=== PATIENT | female | born 1990 | race Caucasian/White ===

== ENCOUNTER 2019-10-20 04:49 | Inpatient (IN) | payer BC, OTHER ==
[2019-10-19 13:55] LABS: Urine Appearance CLOUDY; Urine Blood NEGATIVE (NEG); Urine Color DK YELLOW; Urine Glucose NEGATIVE (NEG); Urine Protein NEGATIVE (NEG); Urine Specific Gravity 1.025 (1.005-1.030)
[2019-10-19 13:55] LABS: Absolute Lymphocytes (CBC) 2.3 K/uL (0.7-4.9); Basophils % 0.3 % (0-1.3); Hematocrit 40.3 % (36.0-45.0); Lymphocytes % 21.9 % (15.3-44.8); MPV 9.4 fL (7.6-11.3); RBC Red Blood Cell Count 4.94 M/uL (3.86-4.86)
[2019-10-19 13:58] LABS: Urine Microscopic Reflex ORDER UMIC
[2019-10-19 14:01] LABS: Urine Bilirubin 1+ (NEG)
[2019-10-19 14:01] LABS: Protime INR 0.97
[2019-10-19 14:03] LABS: Urine Bacteria 20-50 /HPF (<20); Urine RBC <5 /HPF (NONE SEEN)
[2019-10-19 14:04] LABS: Urine Culture Reflex Order NOT NEEDED; Urine Mucus MOD /HPF (NONE SEEN)
[~2019-10-20 04:49] MED LIST: CEFAZOLIN/SWI 2gm 2 GM/20 ML SYR IV SCH; METOCLOPRAMIDE 10 MG/2mL INJ IV ONE; NA CIT/CITRIC AC 30 ML ORAL UDC PO ONE
[2019-10-20] MEDS ORDERED: CEFAZOLIN/SWI 2gm 2 GM/20 ML SYR ONE (06:09)
[2019-10-20] MEDS ORDERED: Ringers Lactate 1,000 ML IV PRN (06:18)
[2019-10-20 06:33] VITALS: BMI 38.8
[2019-10-20] MEDS ORDERED: CARBOPROST TROME 250 MCG/ML IM ONE (06:58)
[2019-10-20] MEDS ORDERED: METHYLERGONOVINE 0.2MG/ML AMP IM ONE (06:58)
[2019-10-20] MEDS ORDERED: Ringers Lactate 1,000 ML IV SCH (07:00)
[2019-10-20] MEDS ORDERED: OXYTOCIN 10 UNIT/ML ML IV ONE (07:05)
[2019-10-20] MEDS ORDERED: MORPHINE SULFATE/PF 1 MG/ML (10 ML AMP) ONE (07:05)
[2019-10-20] MEDS ORDERED: ONDANSETRON 4 MG/2 ML VIAL ONE (07:06)
[2019-10-20] MEDS ORDERED: BUPIVACAINE 0.75% (PF) 2 ML SP ONE (07:07)
[2019-10-20] MEDS ORDERED: EPHEDRINE SULF 50 MG/ML VIAL ONE (07:39)
[2019-10-20] MEDS ORDERED: ONDANSETRON 4 MG (ODT) TAB PO PRN (08:32)
[2019-10-20] MEDS ORDERED: ACETAMINOPHEN 500 MG TAB PO PRN ×2 (08:32)
[2019-10-20] MEDS ORDERED: KETOROLAC 30 MG/ML INJ IM PRN (08:32)
[2019-10-20] MEDS ORDERED: BISACODYL 10 MG RECTAL SUPP PR PRN (08:32)
[2019-10-20] MEDS ORDERED: ONDANSETRON 4 MG/2 ML VIAL IV PRN (08:32)
[2019-10-20] MEDS ORDERED: Oxycodone HCl/Acetaminophen 1 TAB TAB PO PRN ×2 (08:32)
[2019-10-20] MEDS ORDERED: KETOROLAC 30 MG/ML INJ IV PRN (08:32)
[2019-10-20] MEDS ORDERED: DIPHENHYDRAMINE 25 MG TAB/CAP PO PRN (08:32)
[2019-10-20] MEDS ORDERED: OXYTOCIN/LR 20 UNIT/1,000 ML BAG IV SCH (09:00)
[2019-10-20] MEDS ORDERED: FAMOTIDINE 20 MG/2 ML VIAL IV SCH (09:00)
[2019-10-20] MEDS ORDERED: D5LR 1,000 ML with OXYTOCIN 20 UNIT IV SCH ×2 (09:00)
--- NOTE | 2019-10-20 09:33 | PREOPHP ---
Date of Admission: 10/20/2019 History Of Present Illness: 28-year-old, 3, para 1, at 39 weeks tomorrow for repe at section. Infection; blood loss; anesthetic complications; injury to bladder, bowel, uret er; postoperative complications; clots in legs; and pneumonia. Patient knows fully well this does no t constitute all the possible problems that could occur during or following surgery. Family History: Mother and paternal aunt with hypertension. Mother with a stroke. Allergies: PATIENT HAS NO ALLERGIES. Current Medications: She has been taking vitamins prior to admission. Social History: Does not smoke. Physical Examination: HEENT: Clear. Pupils are equal, round, and reactive to light and accommodation. Conjunctivae well perfused. No oral, lingual, or buccal lesions. Lungs: Clear. Heart: Patient says that she has a heart murmur, but I cannot detect anything major today. Breasts: Without masses on previous visits. Abdomen: Dramatically obese with significant panniculus overhanging her incision. Extremities: Clear. Pelvic: The baby is vertex, high and she is fingertip to 1.5 cm possibly dilated. Plan: We will proceed with repeat section tomorrow. Full discussion with patient and hien mart. SAEED/LORRAINE Voice ID: [id number]
[2019-10-20] MEDS ORDERED: KETOROLAC 30 MG/ML INJ ONE (09:43)
[2019-10-20] MEDS ORDERED: MEPERIDINE HCL 25 MG/0.5 ML IV PRN (10:25)
[2019-10-20] MEDS ORDERED: Rho(D) IG (HUMAN) 300 MCG SYR IM ONE (12:00)
[2019-10-20] MEDS: IBUPROFEN 600 MG TAB PO PRN (17:10)
[2019-10-20] MEDS ORDERED: CEFAZOLIN/SWI 1gm 1 GM/10 ML SYR IVP ONE (17:15)
[2019-10-20] MEDS ORDERED: CEFAZOLIN/SWI 1gm 1 GM/10 ML SYR ONE (17:16)
[2019-10-21] MEDS: IBUPROFEN 600 MG TAB PO PRN (00:30)
[2019-10-21] MEDS ORDERED: MAGNESIUM HYDROXIDE 8% 30 ML PO PRN (08:32)
[2019-10-21] MEDS ORDERED: Ringers Lactate 1,000 ML IV ONE (15:28)
[2019-10-22 05:57] VITALS: TEMP 98
[2019-10-22] MEDS ORDERED: Tdap (Diph,Pertuss(Acell),Tet Vac) 0.5 ML SYR IMVAC ONE (07:23)
[2019-10-22 07:31] VITALS: BP 116/66
[2019-10-22] MEDS: IBUPROFEN 600 MG TAB PO PRN (07:42)
--- NOTE | 2019-10-22 09:35 | DS ---
28-year-old 3, para 1, for repeat section. Patient was delivered of a 6-pound 11-ou nce female, Apgars 9 and 9 under spinal block anesthesia which was administered twice and effective t he second time, mild uterine hypotonus. 900 cc or less blood loss. Ancef used for prophylaxis pre a nd postop. Postoperatively, has remained afebrile, was ambulating and voiding. Lochia is normal. W ill be dismissed this morning, to report back to my office next week for staple removal. To report a ny temperature elevation of 100 degrees or greater, severe pain, heavy bleeding, or any other type of abnormalities. Dismissed with tramadol for analgesia. She knows this goes through the breast milk. Tdap will be administered before she is dismissed. The patient is Rh negative and immune to Rubell a. Has received her RhoGAM. Final Diagnoses: Term intrauterine . Repeat section. Spinal block anesthesia. R hoGAM administered. SAEED/LORRAINE Voice ID: [id number] Report ID: [id number]
--- NOTE | 2019-10-24 10:34 | OP ---
Surgeon: Caesar Plummer MD Manager Wellness: Manager Wellness surgeon, Dr. Wade. Anesthesiologist: Dr. Ballard. Indications: 28-year-old 3, para 2, 39 weeks gestation, for repeat section. Infect ion; blood loss; anesthetic complications; injury to bladder, bowel, ureter; postoperative complicati ons; clots in legs; pneumonia discussed. Patient knows fully well this does not constitute all the p ossible problems that could occur during or following surgery. Anesthesia: Spinal block anesthesia. Description Of Procedure: After second spinal block attempted, patient received good analgesia. Pre pping and draping was performed and then timeout. Pfannenstiel incision was created along the previo us incision site. The incision carried to the fascia. The fascia was incised and incision carried t ransversely bilaterally. Two [id number]-[id number] stitches were needed in the right rectus muscles for sm all bleeder at that point. Anterior and posterior fascial planes were developed with both blunt and sharp dissection. The underlying rectus muscle was , peritoneum entered. Low-transverse bl adder flap was developed. Low transverse uterine incision created, 6 pounds, 11-ounce female was del ivered, Apgars 9 and 9. Cord blood specimen was obtained. Placenta was removed manually. Uterus cl eared of clot and blood. Very mild hypertonus. 0.2 mg of Methergine. More for prophylaxis and anyt jesus else. 900 cc estimated blood loss during the procedure. Cervical os dilated with ring clamps a fter all membranes were removed. Uterus closed with a running locked stitch of 1 chromic followed by 3 [id number]-am-[id number] stitches in the right angle for complete hemostasis. Gutters clear of clot and bl ood. Uterus was replaced in the peritoneal cavity. A suture line checked, no further bleeding. Mus cles were reapproximated using 0 Vicryl 3 interrupted sutures. Fascia was closed using 1 PDS, runnin g from either angle to the midline. Subcutaneous tissue closed with 2-0 plain and staple was then ap plied. Patient had been given 2 g of Ancef. Tolerated all procedures well. Transferred back to her room in good condition. Final Diagnoses: Term intrauterine for repeat section, 39 weeks. Spinal block an esthesia. Very mild uterine hypertonus. NBC/MODL Voice ID: [id number] Report ID: [id number]
== END 2019-10-22 10:00 | disposition home or self-care (01) | DRG 788 ==
LOC: 2ND-WC 04:49
PROVIDERS: ADMIT Specialist; ATTEND Specialist
PROC: 10907ZC Drainage of Amniotic Fluid, Therapeutic from Products of Conception, Via Natural or Artificial Opening (ICD-10-PCS; 2019-10-20)
PROC: 3E0234Z Introduction of Serum, Toxoid and Vaccine into Muscle, Percutaneous Approach (ICD-10-PCS; 2019-10-20)
PROC: 10D00Z1 Extraction of Products of Conception, Low, Open Approach (ICD-10-PCS; principal; 2019-10-20 07:48)
DX: O34.211 Maternal care for low transverse scar from previous cesarean delivery (principal); O62.4 Hypertonic, incoordinate, and prolonged uterine contractions; Z3A.39 39 weeks gestation of pregnancy; Z37.0 Single live birth; Z67.21 Type B blood, Rh negative; Z23 Encounter for immunization
CPT/HCPCS: 36415; 81003; 81015; 85014; 85025; 85461; 85610; 85730; 86850; 86900; 86901; 88307; 90471; 90715; J0690; J2210; J2405; J2590; J2765; J2790; J7120; J7121

== ENCOUNTER 2020-10-19 20:06 | Emergency (ER) | payer BC, OTHER ==
--- OUTSIDE RECORDS SUMMARY | 2020-10-19 20:09 | XMS REPORT | Continuity of Care Document ---
:1990 Author Organization [facility] t Address [address] [place] [address] Dr. Wang [address] [place] [id number] Care Team Providers Name Role Phone Unavailable Unavailable Unavailable Problems This patient has no known problems. Allergies, Adverse Reactions, Alerts This patient has no known allergies or adverse reactions. Social History Social Habit Start Date Stop Date Quantity Comments Source Sex Assigned At [facility] Medications This patient has no known medications. Procedures This patient has no known procedures. Results This patient has no known results.
[2020-10-19] MEDS ORDERED: METOCLOPRAMIDE 10 MG/2mL INJ ONE (20:57)
[2020-10-19] MEDS ORDERED: DIPHENHYDRAMINE 50 MG/ML VIAL ONE (20:57)
[2020-10-19] MEDS ORDERED: NA CHLORIDE 0.9% 1,000 ML ONE ×2 (20:57→22:49)
[2020-10-19] MEDS ORDERED: TETRACAINE HCL 0.5% 4ML OPTH ONE (21:01)
[2020-10-19] MEDS ORDERED: FLUORESCEIN SODIUM 1 MG/WRAP ONE (21:01)
--- NOTE | 2020-10-19 21:02 | RAD REPORT ---
EXAM DESCRIPTION: CT - Head Brain Wo Cont - 10/19/2020 8:51 pm CLINICAL HISTORY: Headache COMPARISON: None. TECHNIQUE: Computed axial tomography of the head was obtained. IV contrast was not requested. All CT scans are performed using dose optimization technique as appropriate and may include automated exposure control or mA/KV adjustment according to patient size. FINDINGS: An intracranial bleed is not seen . The ventricles are normal in caliber. No extra-axial fluid collection is noted. Fluid within the sinuses/ mastoids is not seen. IMPRESSION: No acute intracranial abnormality is seen. If patient's symptoms persist MRI of the bra in would be recommended.
[2020-10-19 21:07] LABS: Absolute Lymphocytes (CBC) 3.2 K/uL (0.7-4.9); Basophils % 0.4 % (0-1.3); Hematocrit 40.2 % (36.0-45.0); Lymphocytes % 47.5 % (15.3-44.8); MPV 10.1 fL (7.6-11.3); Protime INR 1.12; RBC Red Blood Cell Count 4.65 M/uL (3.86-4.86)
[2020-10-19 21:21] LABS: Blood Morphology Comment NOT SEEN (NOT SEEN); Platelet Estimate ADEQ; White Blood Cell Scan OK (OK)
[2020-10-19 21:23] LABS: ALT/SGPT 18 U/L (12-78); AST/SGOT 15 U/L (15-37); Albumin 3.9 g/dL (3.4-5.0); Alkaline Phosphatase 49 U/L (45-117); BUN Blood Urea Nitrogen 6 mg/dL (7-18); Bicarbonate 24 mmol/L (21-32); Bilirubin Direct 0.1 mg/dL (0-0.2); Bilirubin Total 0.4 mg/dL (0.2-1.0); Glucose Level 97 mg/dL (74-106); Magnesium 2.2 mg/dL (1.8-2.4); Protein, Total 7.8 g/dL (6.4-8.2); Sodium Level 140 mmol/L (136-145)
[2020-10-19 22:25] LABS: Urine Blood 3+ (Negative); Urine Glucose Negative (Negative); Urine Protein Negative (Negative); Urine Specific Gravity 1.025 (1.005-1.030)
[2020-10-19 22:48] LABS: Barbiturates NEGATIVE (NEGATIVE); Benzodiazepines NEGATIVE (NEGATIVE); Cocaine NEGATIVE (NEGATIVE); METHAMPHETAM NEGATIVE (NEGATIVE); Methadone NEGATIVE (NEGATIVE); Opiates NEGATIVE (NEGATIVE); Phencyclidine NEGATIVE (NEGATIVE); THC Cannibis NEGATIVE (NEGATIVE)
[2020-10-19] MEDS ORDERED: ONDANSETRON 4 MG/2 ML VIAL ONE (22:49)
--- NOTE | 2020-10-19 22:54 | ER ---
Nurse's Notes [facility] Name: Griselda Luis Age: 29 yrs Sex: Female : 1990 Arrival Date: 10/19/2020 Time: 20:11 Bed 6 Private MD: Shaye Chowdhury H Diagnosis: Headache;Dizziness and giddiness;Corneal Abrasion, Left ;Urinary tract infection, site not specified;Dehydration Presentation: 10/19 20:18 Chief complaint: Patient states: Reports she woke up with blurry vision on left eye \T\ ea 1400. Slept at 1300. Pt reports she has headache on occipital area and is still having blurry vision. Coronavirus screen: At this time, the client does not indicate any symptoms associated with coronavirus-19. Ebola Screen: No symptoms or risks identified at this time. Initial Sepsis Screen: Does the patient meet any 2 criteria? No. Patient's initial sepsis screen is negative. Does the patient have a suspected source of infection? No. Patient's initial sepsis screen is negative. Risk Assessment: Do you want to hurt yourself or someone else? Patient reports no desire to harm self or others. Onset of symptoms was October 19, 2020. 20:18 Method Of Arrival: Ambulatory ea 20:18 Acuity: NELSON 3 ea Triage Assessment: 20:22 General: Appears in no apparent distress. Behavior is calm, cooperative, appropriate ea for age. Pain: Complains of pain in left parietal area and right parietal area Pain does not radiate. Pain currently is 8 out of 10 on a pain scale. Pain began 4 hours ago. Neuro: Level of Consciousness is awake, alert, obeys commands, Oriented to person, place, time. Cardiovascular: Patient's skin is warm and dry. Respiratory: Airway is patent Respiratory effort is even, unlabored, Respiratory pattern is regular, symmetrical. Derm: Skin is pink, warm \T\ dry. 20:22 Pain: Also complains of nausea. rr5 20:22 Headache History: Denies prior headaches. 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 - Social history:: Smoking status: Patient denies any tobacco usage or history of. Screenin:20 Abuse screen: Denies threats or abuse. Nutritional screening: No deficits noted. ea Tuberculosis screening: No symptoms or risk factors identified. Fall Risk None identified. Assessment: 21:00 General: Appears in no apparent distress. uncomfortable, Behavior is calm, cooperative, rr5 appropriate for age. Pain: Complains of pain in head Pain currently is 8 out of 10 on a pain scale. Quality of pain is described as aching, Pain began gradually, Is intermittent. Neuro: Level of Consciousness is awake, alert, obeys commands, Oriented to person, place, time, situation, Reports blurred vision headache. Cardiovascular: Capillary refill < 3 seconds Patient's skin is warm and dry. Respiratory: Airway is patent Respiratory effort is even, unlabored, Respiratory pattern is regular, symmetrical. GI: Reports nausea. : No signs and/or symptoms were reported regarding the genitourinary system. EENT: Reports blurred vision. Derm: Skin is intact, is healthy with good turgor, Skin temperature is warm. Musculoskeletal: Capillary refill < 3 seconds. 22:00 Reassessment: Patient appears in no apparent distress at this time. Patient is alert, rr5 oriented x 3, equal unlabored respirations, skin warm/dry/pink. awaiting for result. 23:07 Reassessment: Patient appears in no apparent distress at this time. Patient is alert, rr5 oriented x 3, equal unlabored respirations, skin warm/dry/pink. discharge instruction given and explained without complaints made Patient states feeling better. Patient states symptoms have improved. Vital Signs: 20:18 BP 115 / 71; Pulse 97; Resp 16; Temp 97.8; Pulse Ox 100% ; Weight 72.57 kg; Height 5 ea ft. 9 in. (175.26 cm); Pain 8/10; 21:13 BP 103 / 67 Supine; Pulse 69; Resp 19; Pulse Ox 98% ; rr5 21:15 BP 110 / 75 Sitting; Pulse 74; Resp 19; Pulse Ox 100% ; rr5 21:17 BP 104 / 71 Standing; Pulse 68; Resp 15; Pulse Ox 99% ; rr5 22:00 BP 106 / 65; Pulse 76; Resp 19; Pulse Ox 99% ; rr5 23:08 BP 111 / 68; Pulse 69; Resp 19; Pulse Ox 98% ; rr5 20:18 Body Mass Index 23.63 (72.57 kg, 175.26 cm) ea 21:17 complaints of slight dizziness rr5 ED Course: 20:11 Patient arrived in ED. am4 20:13 Shaye Chowdhury DO is Private Physician. am4 20:18 Nayan Gruber MD is Attending Physician. 7 20:20 Triage completed. ea 20:21 Patient has correct armband on for positive identification. Bed in low position. Call ea light in reach. Side rails up X2. 20:22 Arm band placed on right wrist. Patient placed in an exam room, on a stretcher, on ea pulse oximetry. 20:34 Hamilton Cronin RN is Primary Nurse. rr5 20:51 CT Head Brain wo Cont In Process Unspecified. EDMS 20:55 EKG done, by ED staff, reviewed by Nayan Gruber MD. Inserted saline lock: 20 gauge in rr5 right forearm, using aseptic technique. 21:18 Assist provider with eye exam of left eye. using fluorescein stain, Performed by rr5 Nayan Gruber MD Patient tolerated well. 22:52 Vanessa Youngblood MD is Referral Physician. 7 23:09 IV discontinued, intact, bleeding controlled, No redness/swelling at site. Pressure rr5 dressing applied. Administered Medications: 21:00 Drug: NS 0.9% 1000 ml Route: IV; Rate: 1000 ml; Site: right forearm; rr5 22:00 Follow up: Response: No adverse reaction; IV Status: Completed infusion; IV Intake: rr5 1000ml 21:00 Drug: Benadryl (diphenhydrAMINE) 25 mg Route: IVP; Site: right forearm; rr5 22:00 Follow up: Response: No adverse reaction; Marked relief of symptoms rr5 21:03 Drug: Reglan (metoCLOPramide) 10 mg Route: IVP; Site: right forearm; rr5 22:00 Follow up: Response: No adverse reaction rr5 21:16 Drug: Tetracaine Drops 0.5 % 1 drops {Note: by .} Route: Ophthalmic; Site: rr5 both eyes; 22:00 Follow up: Response: No adverse reaction rr5 22:54 Drug: D5-NS 1000 ml Route: IV; Rate: per protocol; Site: right forearm; ea 23:10 Follow up: Response: No adverse reaction; IV Status: Order to discontinue infusion; IV rr5 Intake: 300ml Intake: 22:00 IV: 1000ml; Total: 1000ml. rr5 23:10 IV: 300ml; Total: 1300ml. rr5 Outcome: 22:54 Discharge ordered by . juanjose 23:09 Discharged to home ambulatory. rr5 23:09 Condition: stable 23:09 Discharge instructions given to patient, Instructed on discharge instructions, follow up and referral plans. medication usage, Demonstrated understanding of instructions, follow-up care, medications, Prescriptions given X 2. 23:11 Patient left the ED. rr5 Signatures: Dispatcher [employer] EDMS Patrizia Hardy RN RN ea Roque, Raymond, RN RN rr5 Nayan Gruber MD MD [facility] Sapna Hodge am Corrections: (The following items were deleted from the chart) 21:20 21:18 Assist provider with eye exam of both eyes. using fluorescein stain, Performed by rr5 Nayan Gruber MD Patient tolerated well. rr5
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
[2020-10-19] MEDS ORDERED: D5 0.9 NS 1,000 ML IV ONE (23:10)
[2020-10-19 23:55] VITALS: TEMP 97.8
[2020-10-20 00:32] VITALS: BP 111/68; O2SAT 98
== END 2020-10-19 23:11 | disposition home or self-care (01) ==
LOC: ER 20:06
DX: R51.9 Headache, unspecified (principal); R42 Dizziness and giddiness; N39.0 Urinary tract infection, site not specified; E86.0 Dehydration; S05.02XA Injury of conjunctiva and corneal abrasion without foreign body, left eye, initial encounter; X58.XXXA Exposure to other specified factors, initial encounter
CPT/HCPCS: 96361; 93005; 85025; 80048; 36415; 83735; 84100; 85610; 80076; 80307 ×8; 85730; 84443; 81003; 70450; 96375; 96374; 99284; J2765; J1200; J7042; J7030 ×2; J2405